=== PATIENT | male | born 1975 | race Caucasian/White ===

== ENCOUNTER 2019-11-23 23:04 | Emergency (ER) | payer BC ==
--- NOTE | 2019-11-23 23:57 | EDM.PDOC ---
ED HPI GENERAL MEDICAL PROBLEM - General Chief Complaint: Upper Extremity Injury/Pain Stated Complaint: LEFT HAND INJURY Time Seen by Provider: 11/23/19 23:52 Source of Information: Reports: Patient History Limitations: Reports: No Limitations - History of Present Illness INITIAL COMMENTS - FREE TEXT/NARRATIVE: This is a 44-year-old male who presents to the emergency room with a chief complaint of left finger pain after mountain biking. Patient states his finger went out of joint and he put it back in but he still has pain therefore he came to the emergency room Onset: Today Duration: Hour(s): Location: Reports: Upper Extremity, Left Quality: Reports: Burning, Throbbing Severity: Moderate Improves with: Reports: None Worsens with: Reports: None Associated Symptoms: Reports: No Other Symptoms L 5th digit Pain Score (Numeric/FACES): 10 - Related Data Allergies Allergy/AdvReac Type Severity Reaction Status Date / Time No Known Allergies Allergy Verified 11/23/19 23:36 Home Meds: Home Meds . [No Known Home Meds] 11/23/19 [History] Review of Systems - Review of Systems Review Of Systems: See Below Constitutional: Reports: No Symptoms Eyes: Reports: No Symptoms Ears: Reports: No Symptoms Nose: Reports: No Symptoms Mouth/Throat: Reports: No Symptoms Respiratory: Reports: No Symptoms Cardiovascular: Reports: No Symptoms GI/Abdominal: Reports: No Symptoms Genitourinary: Reports: No Symptoms Musculoskeletal: Reports: No Symptoms, Other (Finger pain/fifth digit) Skin: Reports: No Symptoms Neurological: Reports: No Symptoms Psychiatric: Reports: No Symptoms ED EXAM, GENERAL - Physical Exam Exam: See Below Exam Limited By: No Limitations General Appearance: Alert, WD/WN, No Apparent Distress Eye Exam: Bilateral Eye: Normal Fundi, Normal Inspection Ears: Normal External Exam, Normal Canal, Hearing Grossly Normal, Normal TMs Ear Exam: Bilateral Ear: Auricle Normal, Canal Normal, TM normal Nose: Normal Inspection, Normal Mucosa, No Blood Throat/Mouth: Normal Inspection, Normal Lips, Normal Teeth, Normal Gums, Normal Oropharynx, Normal Voice, No Airway Compromise Head: Atraumatic, Normocephalic Neck: Normal Inspection, Supple, Non-Tender, Full Range of Motion Cardiovascular: Normal Peripheral Pulses, Regular Rate, Rhythm, No Edema, No Gallop, No JVD, No Murmur, No Rub Back Exam: Normal Inspection, Full Range of Motion, NT Extremities: Limited Range of Motion, Other (Left digit he minimi pain and palpation. ) Neurological: Alert, Oriented, CN II-XII Intact, Normal Cognition, Normal Gait, Normal Reflexes, No Motor/Sensory Deficits Skin Exam: Warm, Dry, Intact, Normal Color, No Rash Lymphatic: No Adenopathy ED TRAUMA EXTREMITY PROCEDURES - Splinting Left 5th Digit Pre-Procedure NV Status: Normal Post-Procedure NV Status: Normal Splint Material: Aluminum-Foam Splint Design: Volar Applied & Form Fitted By: Nurse Provider Post-Splint Application NV Check: NV Status Normal Complications: No Course - Vital Signs Last Recorded V/S: Last Vital Signs Temp 97.6 F 11/23/19 23:24 Pulse 76 11/23/19 23:24 Resp 18 11/23/19 23:24 BP 191/119 H 11/23/19 23:24 Pulse Ox 98 11/23/19 23:24 - Orders/Labs/Meds Orders: Active Orders 24 hr Category Date Time Status Fingers Fifth Digit Lt F4 [CR] Stat Exams 11/23/19 23:33 Ordered Fingers Fifth Digit Rt F9 [CR] Stat Exams 11/23/19 23:47 Ordered Departure - Departure Time of Disposition: 23:56 Disposition: Home, Self-Care 01 Condition: Good Clinical Impression: Dislocation of distal interphalangeal joint of left index finger - Discharge Information Referrals: PCP,None [Primary Care Provider] - Sepsis Event Note - Evaluation Sepsis Screening Result: No Definite Risk - Focused Exam Vital Signs: Vital Signs Temp Pulse Resp BP Pulse Ox 11/23/19 23:24 97.6 F 76 18 191/119 H 98 Date Exam was Performed: 11/23/19 Time Exam was Performed: 23:52 - My Orders Last 24 Hours: My Active Orders 11/23/19 23:33 Fingers Fifth Digit Lt F4 [CR] Stat 11/23/19 23:47 Fingers Fifth Digit Rt F9 [CR] Stat - Assessment/Plan Last 24 Hours: My Active Orders 11/23/19 23:33 Fingers Fifth Digit Lt F4 [CR] Stat 11/23/19 23:47 Fingers Fifth Digit Rt F9 [CR] Stat
--- NOTE | 2019-11-24 00:28 | CR ---
Indication: Injury. Pain Technique: Three views of the left 5th digit Comparison: None available Findings/Impression: Bones: Dorsal dislocation of the 5th distal phalanx. A small calcific density adjacent to the palmar aspect of the base of the 5th distal phalanx which could represent a small fracture fragment. Joint spaces: Unremarkable. Soft tissues: Unremarkable. Dictated by Sean Langford MD @ 11/24/2019 12:27:22 AM Dictated by: Sean Langford MD @ 11/24/2019 00:27:29 (Electronically Signed)
--- NOTE | 2019-11-24 00:32 | CR ---
Indication: Post reduction Technique: Two views of the left 5th digit Comparison: 11/23/2019 at 11:43 p.m. Findings/Impression: Interval reduction of the previously seen 5th DIP dislocation. A small calcification again seen adjacent to the base of the 5th distal phalanx which may represent a small fracture fragment versus an ossicle. Dictated by Sean Langford MD @ 11/24/2019 12:32:23 AM Dictated by: Sean Langford MD @ 11/24/2019 00:32:26 (Electronically Signed)
== END 2019-11-24 00:10 | disposition home or self-care (01) ==
LOC: MW.ED 23:04
DX: S63.291A Dislocation of distal interphalangeal joint of left index finger, initial encounter (principal); X50.9XXA Other and unspecified overexertion or strenuous movements or postures, initial encounter; Y93.89 Activity, other specified
CPT/HCPCS: 73140-26-F4; 73140-F4; 99282; 99283-25

== ENCOUNTER 2020-09-04 18:44 | Emergency (ER) | payer BC ==
[2020-09-04] MEDS ORDERED: Acetaminophen 500 MG Tab PO ONE (19:31)
--- NOTE | 2020-09-04 20:17 | CR ---
INDICATION: Short of breath. TECHNIQUE: One view. FINDINGS/IMPRESSION : Subtle density at the left base could be nipple shadow under the posterior 9th rib. No other pulmonary parenchymal finding of significance. Pulmonary vascularity and cardiomediastinal silhouette appear normal with no pneumothorax or effusion evident. Dictated by Selvin Ivy MD @ Sep 04 2020 8:15PM Signed by Dr. Selvin Ivy @ Sep 04 2020 8:15PM
--- NOTE | 2020-09-04 21:08 | EDM.PDOC ---
ED HPI GENERAL MEDICAL PROBLEM - General Chief Complaint: Respiratory Problem Stated Complaint: covid complication Time Seen by Provider: 09/04/20 19:04 - History of Present Illness INITIAL COMMENTS - FREE TEXT/NARRATIVE: CHIEF COMPLAINT(S): Shortness of breath HISTORY OF PRESENT ILLNESS: This is a 45-year-old man without any past medical history who comes to the emergency department with a chief complaint of shortness of breath. The patient states that 1 day ago he was diagnosed with COVID-19 in [place]. He states that he was seen in an urgent care and was prescribed hydroxychloroquine, dexamethasone, azithromycin, and albuterol. He states that prior to his visit at urgent care he had symptoms for approximately 3 to 4 days. He states that his symptoms include fever, chills, fatigue and intermittent shortness of breath with cough. He states that this evening around 2 PM he started to have increased cough and shortness of breath. He states that he did try the albuterol but it seemed to agitate him. Given the continued coughing for the last couple of hours he decided to come to the emergency department. He states in addition to the hydroxychloroquine, azithromycin, dexamethasone and albuterol he has been taking herbal supplements including zinc and had tried other remedies for his cough. He denies any chest pain or syncope. He denies any lower extremity swelling or prior history of DVT or PE. He states that he did just have a 10-1/2-hour drive from [place]. He denies any risk factors such as asthma, COPD, CHF, CAD, hypertension, morbid obesity. He states that he did have a benign arrhythmia when he was in the . He states that he contacted one of his [place] friends who worked in [place] and [place] and he recommended that he come to the emergency department to receive Regeneron and BAM REVIEW OF SYSTEMS: Constitutional: Positive for fever Eyes: Denies eye pain Ears, Nose, Mouth, & Throat: Denies earache, sore throat, runny nose Cardiovascular: Denies chest pain Respiratory: Positive for shortness of breath and nonproductive cough. Gastrointestinal: Denies Nausea, vomiting, diarrhea, hematochezia. Genitourinary: Denies hematuria Skin:Denies a rash MSK: Denies joint pain Neurological: Denies blurred vision Psychiatric: Denies depression PAST MEDICAL HISTORY: As per history of present illness and as reviewed below otherwise noncontributory. SURGICAL HISTORY: As per history of present illness and as reviewed below otherwise noncontributory. SOCIAL HISTORY: As per history of present illness and as reviewed below otherwise noncontributory. FAMILY HISTORY: As per history of present illness and as reviewed below otherwise noncontributory. EXAMINATION OF ORGAN SYSTEMS/BODY AREAS: Constitutional: Blood pressure is 159/102, heart rate 102, respiratory rate 24 with an oxygen saturation of 97% on room air. Temperature 38.2 General: Young man who does not appear to be in acute distress Psychiatric: Appropriate mood and affect. Eyes: No scleral icterus or conjunctival erythema ENMT: Moist mucous membranes. No pharyngeal erythema Cardiovascular: Regular, rate, and rhythm. No gallops, murmurs, or rubs. Bilateral upper extremity pulses symmetric and intact. No peripheral edema. No JVD. Respiratory: Lungs clear to auscultation bilaterally. No wheezes, rales, or rhonchi. Gastrointestinal: Soft, non-tender, non-distended. Normoactive bowel sounds Genitourinary: No suprapubic tenderness Musculoskeletal: Normal range of motion. Skin: No lesions or abrasions. Neurological: Alert, GCS 15 MEDICAL DECISION MAKING AND COURSE IN THE ED WITH INTERPRETATION/REVIEW OF DIAGNOSTIC STUDIES: This is a 45-year-old man without any significant past medical history recently diagnosed with COVID-19 and prescribed hydroxychloroquine of azithromycin, albuterol, dexamethasone who comes to the emergency department with shortness of breath and cough. The patient's vitals show an adequate oxygenation however the patient is tachycardic and febrile. We will provide the patient with Tylenol for the fever. At this time given the patient's recent diagnosis of Covid and the prolonged travel by car we will obtain a D-dimer to risk stratify for possible pulmonary embolism. Will obtain a screening EKG and a chest x-ray. I do not believe any other labs or imaging are indicated. Laboratory: D-dimer is 0.42. The radiological images were viewed by myself along with reading the report from the radiologist. Chest x-ray does not reveal any acute cardiopulmonary process. The patient's vitals continue to remain normal with adequate oxygenation. I did have a discussion with the patient regarding management at this time. I did recommend to the patient that at this time dexamethasone, hydroxychloroquine, and azithromycin are not indicated and may actually be harmful. I did encourage the patient to not take these medications. I discussed that given that he does not have any comorbid conditions and that his vitals remain normal he is not a candidate for any monoclonal antibody treatment or other treatment at this time. I did recommend the use of Tylenol and Motrin for fever and pain relief. I did discuss with the patient that he could use albuterol as needed given that there is possibility of bronchitis. I discussed that he should purchase an [id number] pulse oximetry and that he should return if his pulse oximetry remains low persistently. He was also given other strict return precautions. He was amenable to discharge at this time and had no further questions. DISPOSITION: The patient was discharged home in stable condition. The patient will follow up with primary care physician within 2 to 3 days CONDITION: Fair PROCEDURES: None FINAL IMPRESSION(S)/DIAGNOSES: 1. Acute dyspnea secondary to COVID-19 Vince Crocker M.D. lower back Pain Score (Numeric/FACES): 8 - Related Data Allergies Allergy/AdvReac Type Severity Reaction Status Date / Time No Known Allergies Allergy Verified 09/04/20 19:15 Home Meds: Home Meds Azithromycin 500 mg PO 09/04/20 [History] Hydroxychloroquine [Plaquenil] 09/04/20 [History] dexAMETHasone [Decadron] 09/04/20 [History] Past Medical History - Past Health History Medical/Surgical History: Denies Medical/Surgical History Cardiovascular History: Reports: Hypertension, Other (See Below) Other Cardiovascular History: states he is not on medication for HTN "i do exercise" Respiratory History: Reports: None Gastrointestinal History: Reports: None Genitourinary History: Reports: None Musculoskeletal History: Reports: None Neurological History: Reports: None Psychiatric History: Reports: None Endocrine/Metabolic History: Reports: None Insulin Pump Model and Office Support Associate: None Hematologic History: Reports: None Immunologic History: Reports: None Oncologic (Cancer) History: Reports: None Dermatologic History: Reports: None - Infectious Disease History Infectious Disease History: Reports: Chicken Pox - Past Surgical History Head Surgeries/Procedures: Reports: None Cardiovascular Surgical History: Reports: None Social & Family History - Family History Family Medical History: No Pertinent Family History - Caffeine Use Caffeine Use: Reports: None - Recreational Drug Use Recreational Drug Use: No ED ROS GENERAL - Review of Systems Review Of Systems: See Below ED EXAM, GENERAL - Physical Exam Exam: See Below Course - Vital Signs Last Recorded V/S: Last Vital Signs Temp 37.5 C 09/04/20 21:20 Pulse 82 09/04/20 21:20 Resp 82 H 09/04/20 21:20 BP 128/69 09/04/20 21:20 Pulse Ox 95 09/04/20 21:20 - Orders/Labs/Meds Labs: Laboratory Tests 09/04/20 Range/Units 19:05 D-Dimer, Quantitative 0.42 (0.0-0.50) mg/L FEU Meds: Medications Discontinued Medications Generic Name Dose Route Start Last Admin Trade Name Freq PRN Reason Stop Dose Admin Acetaminophen 1,000 mg 09/04/20 19:31 09/04/20 19:43 Tylenol Extra Strength PO 09/04/20 19:32 1,000 mg ONETIME ONE Administration Departure - Departure Time of Disposition: 21:07 Disposition: Home, Self-Care 01 Condition: Fair Clinical Impression: COVID-19 - Discharge Information *PRESCRIPTION DRUG MONITORING PROGRAM REVIEWED*: No *COPY OF PRESCRIPTION DRUG MONITORING REPORT IN PATIENT SEFERINO: No Instructions: COVID-19 Frequently Asked Questions, What You Should Know About COVID-19 to Protect Yourself and Others - CDC, 10 Things You Can Do to Manage Your COVID-19 Symptoms at Home - CDC, Acute Bronchitis, Adult, [id number], COVID-19: Quarantine vs. Isolation - CDC Referrals: PCP,None [Primary Care Provider] - Forms: ED Department Discharge Additional Instructions: You evaluate today on an emergent basis. At this time your oxygen remained stable, your chest x-ray did not reveal any bacterial pneumonia and the lab was sent to evaluate for clots in your lung was negative. I recommend continued use of Tylenol Motrin for fever and pain relief. I recommend continued fluid intake. Do not take any excessive fluids. You may use albuterol as needed for persistent cough and shortness of breath. This can be used every 4-6 hours. Current NIH, CDC, and WHO recommendations do not recommend dexamethasone, azithromycin or hydroxychloroquine which can be dangerous. Therefore I do recom mend that you stop taking these medications. At this time given that you do not have any comorbid conditions we do not recommend any monoclonal antibody treatment. Please purchase an [id number] pulse oximetry and if your pulse ox is less than 92% persistently please return to the emergency department. If you have any new or worsening symptoms you are also welcome to return. Please follow-up with your primary care physician. We do recommend a 10-day quarantine. Please follow the CDC guidelines Please use: Tylenol 500-1000mg every 6 hours (DO NOT TAKE MORE THAN 4000mg in 1 day) Ibuprofen 400mg every 6 hours (Take with food as it can cause ulcers, GI upset) Example schedule: 8:00 AM (Tylenol 500-1000mg) 11:00 AM (Ibuprofen 400mg) 2:00 PM (Tylenol 500-1000mg) 5:00 PM (Ibuprofen 400mg) [facility] [address] [place] [id number] [place] [address] The patient is informed of any results of their evaluation and diagnostic workup and all questions are answered. They are given discharge instructions and return precautions. The patient is stable for discharge. The patient states they understand and agree with the plan and that they will return if their symptoms get worse or if they have any new concerns. The following information is given to patients seen in the emergency department who are being discharged to home. This information is to outline your options for follow-up care. We provide all patients seen in our emergency department with a follow-up referral. The need for follow-up, as well as the timing and circumstances, are variable depending upon the specifics of your emergency department visit. If you don't have a primary care physician on staff, we will provide you with a referral. We always advise you to contact your personal physician following an emergency department visit to inform them of the circumstance of the visit and for follow-up with them and/or the need for any referrals to a consulting specialist. The emergency department will also refer you to a specialist when appropriate. This referral assures that you have the opportunity for follow-up care with a specialist. All of these measure are taken in an effort to provide you with optimal care, which includes your follow-up. Under all circumstances we always encourage you to contact your private physician who remains a resource for coordinating your care. When calling for follow-up care, please make the office aware that this follow-up is from your recent emergency room visit. If for any reason you are refused follow-up, please contact the [facility] Emergency Department at and asked to speak to the emergency department charge nurse. Sepsis Event Note (ED) - Evaluation Sepsis Screening Result: No Definite Risk - Focused Exam Vital Signs: Vital Signs Temp Pulse Resp BP Pulse Ox 09/04/20 21:20 37.5 C 82 82 H 128/69 95 09/04/20 20:45 37.2 C 87 18 128/77 95 09/04/20 20:00 92 18 135/74 94 L 09/04/20 19:04 38.2 C H 102 H 24 H 159/102 H 97
--- NOTE | 2020-09-05 02:59 | PCM.EKG ---
#1 Interpretation EKG Date: 09/04/20 Time: 19:36 Rhythm: NSR Rate (Beats/Min): 95 Mcgraw: RAD-Right Mcgraw Deviation P-Wave: Present QRS: Wide ST-T: Normal QT: Normal Comparison: NA - No Prior EKG EKG Interpretation Comments: Sinus Rhythm with Q wave V2 and lead I.
== END 2020-09-04 21:20 | disposition home or self-care (01) ==
LOC: MW.ED 18:44
DX: U07.1 COVID-19 (principal); I10 Essential (primary) hypertension
CPT/HCPCS: 36415; 71045; 85379; 93005; 99285; A9270; 93010; 99284

== ENCOUNTER 2020-09-06 16:48 | Emergency (ER) | payer BC ==
[2020-09-06] MEDS ORDERED: Sodium Chloride 0.9% 10 ML Syringe FLUSH PRN (17:01)
[2020-09-06] MEDS ORDERED: Sodium Chloride 0.9% 2.5 ML Syringe FLUSH PRN (17:01)
[2020-09-06] MEDS ORDERED: Sodium Chloride 0.9% 1,000 ML IV ONE ×2 (17:01→17:02)
[2020-09-06] MEDS ORDERED: Acetaminophen 500 MG Tab PO ONE (17:02)
[2020-09-06] MEDS ORDERED: Ketorolac 30 MG/ML SDV IVPUSH ONE (17:02)
--- NOTE | 2020-09-06 17:03 | EDM.PDOC ---
ED HPI GENERAL MEDICAL PROBLEM - General Chief Complaint: Respiratory Problem Stated Complaint: COVID COMPLICATION Time Seen by Provider: 09/06/20 16:50 Source of Information: Reports: Patient History Limitations: Reports: No Limitations - History of Present Illness INITIAL COMMENTS - FREE TEXT/NARRATIVE: HISTORY AND PHYSICAL: History of present illness: Patient is a 45-year-old male who presents to the emergency room with complaints of shortness of breath and cough over the past 1 week. He states a week ago he was diagnosed with COVID-19 while he was in [place]. He states the provider had started him on Plaquenil, azithromycin and Decadron. He discontinued taking these medications few days later after being re-evaluated. Over the past 3 to 4 days he feels his shortness of breath and cough has worsened. He has a home oxygen monitor which he has seen it at 85% on room air. States he continues to have high fevers of 101-103, Tylenol and Ibuprofen help temporarily with fever management. Mild dull frontal headache. Intermittent nausea, vomiting and diarrhea. Patient denies any change in vision, syncope or near syncope. Denies any chest pain, back pain, abdominal pain, constipation or dysuria. Has not noted any blood in urine or stool. Patient has been eating and drinking appropriately. Review of systems: As per history of present illness and below otherwise all systems reviewed and negative. Past medical history: As per history of present illness and as reviewed below otherwise noncontributory. Surgical history: As per history of present illness and as reviewed below otherwise noncontributory. Social history: See social history for further information Family history: As per history of present illness and as reviewed below otherwise noncon tributory. Physical exam: General: Well developed and well nourished. Alert and orientated x 3. Nontoxic in appearance and in no acute distress. Vital signs are stable and have been reviewed by me. Nursing notes were reviewed. HEENT: Atraumatic, normocephalic, pupils equal and reactive bilaterally, negative for conjunctival pallor or scleral icterus, mucous membranes dry/tacky, TMs normal bilaterally, throat clear, neck supple, nontender, trachea midline. No drooling or trismus noted. No meningeal signs. No hot potato voice noted. Lungs: Clear to auscultation bilaterally. No wheezes, rales, or rhonchi. Chest nontender. Normal work of breathing, no accessory muscles used. Heart: S1S2, regular rate and rhythm without overt murmur, gallops, or rubs. No JVD. No peripheral edema Abdomen: Soft, nondistended, nontender. Normoactive bowel sounds. Negative for masses or costovertebral tenderness. Skin: Intact, warm, dry. No lesions or rashes noted. Hematologic: No petechiae or purpra. Mucosa appropriate color and normal nail bed color and refill. Extremities: Atraumatic, moves all extremities per self without difficulty or deficits, negative for cords or calf pain. Neurovascular unremarkable. Neuro: Awake, alert, oriented. Cranial nerves II through XII unremarkable. Cerebellum unremarkable. Motor and sensory unremarkable throughout. Exam nonfocal. Psychiatric: Mood and affect are appropriate. Normal thought process. Answering questions appropriately. Notes: *This patient was seen and evaluated during the 2019 SARS-CoV-2 novel coronavirus pandemic period. Community viral transmission is ongoing at time of this encounter and the emergency department is operating under pandemic response procedures. X-ray shows new bilateral patchy airspace opacities. Findings which could be seen with multifocal pneumonia or a viral infectious process such as COVID-19. Patient does have an elevated D.Dimer, which is not unusual for COVID, but he appears anxious, SOB and is tachycardic. CT angio chest shows no pulmonary emboli. Bilateral patchy ground-glass opacities which can be seen within COVID pneumonia. I have talked with the patient about today's findings, in addition to providing specific details for plan of care. Reassessment at the time of disposition demonstrates that the patient is in no acute distress. The patient is stable for discharge, counseling was provided and we discussed in great detail signs and symptoms that would prompt them to return to the Emergency Department. Medication, follow up and supportive care measures were reviewed and discussed. Voices understanding and is agreeable to plan of care. Denies any further questions or concerns at this time. Diagnostics: CBC, CMP, EKG, CXR, D.Dimer, Blood Culture, Lactate Therapeutics: IV fluids Prescription: Zofran Impression: Dehydration COVID-19 Plan: 1. You do appear dehydrated, you received IV fluids here. You were offered admission and declined. Please keep pushing fluids at home, small frequent sips of fluids. Zofran as needed for nausea management. If your symptoms should worsen or new symptoms develop please return to the emergency room. Continue to monitor for trouble breathing, new confusion or inability to arouse, bluish lips or face or any of the other symptoms we discussed -if this occurs please return to the emergency room. 2. You can take NyQuil during the evening to help get a restful night sleep. May alternate Tylenol and ibuprofen as needed for headache pain and fever management. 3. Please follow up with your primary care provider within the next few days for re-evaluation. Definitive disposition and diagnosis as appropriate pending reevaluation and review of above. Chest, head Pain Score (Numeric/FACES): 5 - Related Data Allergies Allergy/AdvReac Type Severity Reaction Status Date / Time No Known Allergies Allergy Verified 09/04/20 19:15 Home Meds: Home Meds Azithromycin 500 mg PO 09/04/20 [History] Hydroxychloroquine [Plaquenil] 09/04/20 [History] dexAMETHasone [Decadron] 09/04/20 [History] Past Medical History - Past Health History Medical/Surgical History: Denies Medical/Surgical History Cardiovascular History: Reports: Hypertension, Other (See Below) Other Cardiovascular History: states he is not on medication for HTN "i do exercise" Respiratory History: Reports: None Gastrointestinal History: Reports: None Genitourinary History: Reports: None Musculoskeletal History: Reports: None Neurological History: Reports: None Psychiatric History: Reports: None Endocrine/Metabolic History: Reports: None Insulin Pump Model and Weaving Loom Operator: None Hematologic History: Reports: None Immunologic History: Reports: None Oncologic (Cancer) History: Reports: None Dermatologic History: Reports: None - Infectious Disease History Infectious Disease History: Reports: Chicken Pox - Past Surgical History Head Surgeries/Procedures: Reports: None Cardiovascular Surgical History: Reports: None Social & Family History - Family History Family Medical History: No Pertinent Family History - Caffeine Use Caffeine Use: Reports: None ED ROS GENERAL - Review of Systems Review Of Systems: Comprehensive ROS is negative, except as noted in HPI. ED EXAM, GENERAL - Physical Exam Exam: See Below (See dictation) Course - Vital Signs Last Recorded V/S: Last Vital Signs Temp 103.6 F H 09/06/20 17:19 Pulse 100 09/06/20 16:59 Resp 26 H 09/06/20 16:59 BP 137/86 09/06/20 16:59 Pulse Ox 94 L 09/06/20 16:59 - Orders/Labs/Meds Orders: Active Orders 24 hr Category Date Time Status EKG Documentation Completion [RC] STAT Care 09/06/20 17:01 Active CULTURE BLOOD [BC] Stat Lab 09/06/20 17:35 Received CULTURE BLOOD [BC] Stat Lab 09/06/20 17:40 Received Sodium Chloride 0.9% [Saline Flush] Med 09/06/20 17:01 Active 10 ml FLUSH ASDIRECTED PRN Sodium Chloride 0.9% [Saline Flush] Med 09/06/20 17:01 Active 2.5 ml FLUSH ASDIRECTED PRN Blood Culture x2 Reflex Set [OM.PC] Stat Oth 09/06/20 17:02 Ordered Saline Lock Insert [OM.PC] Stat Oth 09/06/20 17:01 Ordered Medication Orders Sodium Chloride (Saline Flush) 10 ml FLUSH ASDIRECTED PRN PRN Reason: Keep Vein Open Last Admin: 09/06/20 17:21 Dose: 10 ml Documented by: VEGA Sodium Chloride (Saline Flush) 2.5 ml FLUSH ASDIRECTED PRN PRN Reason: Keep Vein Open Last Admin: 09/06/20 17:20 Dose: 2.5 ml Documented by: VEGA Labs: Laboratory Tests 09/06/20 09/06/20 09/06/20 Range/Units 17:25 17:25 17:25 WBC 3.56 L (4.0-11.0) K/uL RBC 4.60 (4.50-5.90) M/uL Hgb 14.0 (13.0-17.0) g/dL Hct 39.0 (38.0-50.0) % MCV 84.8 (80.0-98.0) fL MCH 30.4 (27.0-32.0) pg MCHC 35.9 (31.0-37.0) g/dL RDW Std Deviation 37.0 (28.0-62.0) fl RDW Coeff of Sonia 12 (11.0-15.0) % Plt Count 108 L (150-400) K/uL MPV 10.00 (7.40-12.00) fL Neut % (Auto) 77.2 (48.0-80.0) % Lymph % (Auto) 16.3 (16.0-40.0) % H[place] % (Auto) 6.5 (0.0-15.0) % Eos % (Auto) 0.0 (0.0-7.0) % Baso % (Auto) 0.0 (0.0-1.5) % Neut # (Auto) 2.8 (1.4-5.7) K/uL Lymph # (Auto) 0.6 (0.6-2.4) K/uL Hoke # (Auto) 0.2 (0.0-0.8) K/uL Eos # (Auto) 0.0 (0.0-0.7) K/uL Baso # (Auto) 0.0 (0.0-0.1) K/uL Nucleated RBC % 0.0 /100WBC Nucleated RBCs # 0 K/uL D-Dimer, Quantitative 0.74 H (0.0-0.50) mg/L FEU Lactate (0.20-2.00) mmol/L Sodium 128 L (136-148) mmol/L Potassium 3.1 L (3.5-5.1) mmol/L Chloride 93 L (98-107) mmol/L Carbon Dioxide 23.2 (21.0-32.0) mmol/L BUN 12 (7.0-18.0) mg/dL Creatinine 1.0 (0.8-1.3) mg/dL Est Cr Clr Drug Dosing 107.64 mL/min Estimated GFR (MDRD) > 60.0 ml/min Glucose 125 H (74-106) mg/dL Calcium 8.1 L (8.5-10.1) mg/dL Total Bilirubin 0.6 (0.2-1.0) mg/dL AST 71 H (15-37) IU/L ALT 82 H (14-63) IU/L Alkaline Phosphatase 35 L (46-116) U/L Troponin I (0.000-0.056) ng/mL Total Protein 7.6 (6.4-8.2) g/dL Albumin 3.4 (3.4-5.0) g/dL Globulin 4.2 H (2.6-4.0) g/dL Albumin/Globulin Ratio 0.8 L (0.9-1.6) Urine Color Urine Appearance Urine pH (5.0-8.0) Ur Specific [place] (1.001-1.035) Urine Protein (NEGATIVE) mg/dL Urine Glucose (UA) (NEGATIVE) mg/dL Urine Ketones (NEGATIVE) mg/dL Urine Occult Blood (NEGATIVE) Urine Nitrite (NEGATIVE) Urine Bilirubin (NEGATIVE) Urine Urobilinogen (<2.0) EU/dL Ur Leukocyte Esterase (NEGATIVE) Urine RBC (0-2/HPF) Urine WBC (0-5/HPF) Ur Epithelial Cells (NONE-FEW) Urine Bacteria (NEGATIVE) 09/06/20 09/06/20 09/06/20 Range/Units 17:25 17:25 18:27 WBC (4.0-11.0) K/uL RBC (4.50-5.90) M/uL Hgb (13.0-17.0) g/dL Hct (38.0-50.0) % MCV (80.0-98.0) fL MCH (27.0-32.0) pg MCHC (31.0-37.0) g/dL RDW Std Deviation (28.0-62.0) fl RDW Coeff of Sonia (11.0-15.0) % Plt Count (150-400) K/uL MPV (7.40-12.00) fL Neut % (Auto) (48.0-80.0) % Lymph % (Auto) (16.0-40.0) % Hoke % (Auto) (0.0-15.0) % Eos % (Auto) (0.0-7.0) % Baso % (Auto) (0.0-1.5) % Neut # (Auto) (1.4-5.7) K/uL Lymph # (Auto) (0.6-2.4) K/uL Hoke # (Auto) (0.0-0.8) K/uL Eos # (Auto) (0.0-0.7) K/uL Baso # (Auto) (0.0-0.1) K/uL Nucleated RBC % /100WBC Nucleated RBCs # K/uL D-Dimer, Quantitative (0.0-0.50) mg/L FEU Lactate 1.0 (0.20-2.00) mmol/L Sodium (136-148) mmol/L Potassium (3.5-5.1) mmol/L Chloride (98-107) mmol/L Carbon Dioxide (21.0-32.0) mmol/L BUN (7.0-18.0) mg/dL Creatinine (0.8-1.3) mg/dL Est Cr Clr Drug Dosing mL/min Estimated GFR (MDRD) ml/min Glucose (74-106) mg/dL Calcium (8.5-10.1) mg/dL Total Bilirubin (0.2-1.0) mg/dL AST (15-37) IU/L ALT (14-63) IU/L Alkaline Phosphatase (46-116) U/L Troponin I < 0.050 (0.000-0.056) ng/mL Total Protein (6.4-8.2) g/dL Albumin (3.4-5.0) g/dL Globulin (2.6-4.0) g/dL Albumin/Globulin Ratio (0.9-1.6) Urine Color YELLOW Urine Appearance HAZY Urine pH 6.0 (5.0-8.0) Ur Specific [place] 1.025 (1.001-1.035) Urine Protein 100 H (NEGATIVE) mg/dL Urine Glucose (UA) NEGATIVE (NEGATIVE) mg/dL Urine Ketones 15 H (NEGATIVE) mg/dL Urine Occult Blood NEGATIVE (NEGATIVE) Urine Nitrite NEGATIVE (NEGATIVE) Urine Bilirubin NEGATIVE (NEGATIVE) Urine Urobilinogen 0.2 (<2.0) EU/dL Ur Leukocyte Esterase NEGATIVE (NEGATIVE) Urine RBC 0-1 (0-2/HPF) Urine WBC 0-1 (0-5/HPF) Ur Epithelial Cells RARE (NONE-FEW) Urine Bacteria FEW (NEGATIVE) Meds: Medications Generic Name Dose Route Start Last Admin Trade Name Freq PRN Reason Stop Dose Admin Sodium Chloride 10 ml 09/06/20 17:09/06/20 17:21 Saline Flush FLUSH 10 ml ASDIRECTED PRN Administration Keep Vein Open Sodium Chloride 2.5 ml 09/06/20 17:09/06/20 17:20 Saline Flush FLUSH 2.5 ml ASDIRECTED PRN Administration Keep Vein Open Discontinued Medications Generic Name Dose Route Start Last Admin Trade Name Freq PRN Reason Stop Dose Admin Acetaminophen 1,000 mg 09/06/20 17:02 09/06/20 17:19 Tylenol Extra Strength PO 09/06/20 17:03 1,000 mg ONETIME ONE Administration Sodium Chloride 1,000 mls @ 999 mls/hr 09/06/20 17:01 09/06/20 17:20 Normal Saline IV 09/06/20 18:01 999 mls/hr STAT ONE Administration Sodium Chloride 1,000 mls @ 999 mls/hr 09/06/20 17:02 09/06/20 17:20 Normal Saline IV 09/06/20 18:02 999 mls/hr STAT ONE Administration Iopamidol 100 ml 09/06/20 18:48 09/06/20 18:52 Isovue Multipack-370 (76%) IVPUSH 09/06/20 18:49 100 ml ONETIME STA Administration Ketorolac Tromethamine 30 mg 09/06/20 17:02 09/06/20 17:19 Toradol IVPUSH 09/06/20 17:03 30 mg ONETIME ONE Administration Potassium Chloride 40 meq 09/06/20 19:42 Klor-Con M20 PO 09/06/20 19:43 ONETIME ONE Departure - Departure Time of Disposition: 19:46 Disposition: Home, Self-Care 01 Clinical Impression: COVID-19, Dehydration, Hypokalemia - Discharge Information Instructions: Dehydration, Adult, [id number] Referrals: PCP,Declined [Primary Care Provider] - Forms: ED Department Discharge Additional Instructions: The following information is given to patients seen in the emergency department who are being discharged to home. This information is to outline your options for follow-up care. We provide all patients seen in our emergency department with a follow-up referral. The need for follow-up, as well as the timing and circumstances, are variable depending upon the specifics of your emergency department visit. If you don't have a primary care physician on staff, we will provide you with a referral. We always advise you to contact your personal physician following an emergency department visit to inform them of the circumstance of the visit and for follow-up with them and/or the need for any referrals to a consulting specialist. The emergency department will also refer you to a specialist when appropriate. This referral assures that you have the opportunity for follow-up care with a specialist. All of these measure are taken in an effort to provide you with optimal care, which includes your follow-up. Under all circumstances we always encourage you to contact your private physician who remains a resource for coordinating your care. When calling for follow-up care, please make the office aware that this follow-up is from your recent emergency room visit. If for any reason you are refused follow-up, please contact the [facility] Emergency Department at and asked to speak to the emergency department charge nurse. [facility] [address] [place] [id number] [facility] [address] [place] [id number] Thank you for choosing the [facility] emergency department in [place] for your medical needs today. It was a pleasure caring for you. Today you were seen in the emergency department for COVID complications. 1. You do appear dehydrated, you received IV fluids here. You were offered admission and declined, if you should change your mind you can always return. Please keep pushing fluids at home, small frequent sips of fluids. Zofran as needed for nausea management. If your symptoms should worsen or new symptoms develop please return to the emergency room. Continue to monitor for trouble breathing, new confusion or inability to arouse, bluish lips or face or any of the other symptoms we discussed -if this occurs please return to the emergency room. 2. You can take NyQuil during the evening to help get a restful night sleep. May alternate Tylenol and ibuprofen as needed for headache pain and fever management. 3. Please follow up with your primary care provider within the next few days for re-evaluation. Sepsis Event Note (ED) - Focused Exam Vital Signs: Vital Signs Temp Temp Pulse Resp BP Pulse Ox 09/06/20 17:19 103.6 F H 09/06/20 16:59 103.6 F H 100 26 H 137/86 94 L - My Orders Last 24 Hours: My Active Orders 09/06/20 17:01 EKG Documentation Completion [RC] STAT Sodium Chloride 0.9% [Saline Flush] 10 ml FLUSH ASDIRECTED PRN Sodium Chloride 0.9% [Saline Flush] 2.5 ml FLUSH ASDIRECTED PRN Saline Lock Insert [OM.PC] Stat 09/06/20 17:02 Blood Culture x2 Reflex Set [OM.PC] Stat 09/06/20 17:35 CULTURE BLOOD [BC] Stat 09/06/20 17:40 CULTURE BLOOD [BC] Stat - Assessment/Plan Last 24 Hours: My Active Orders 09/06/20 17:01 EKG Documentation Completion [RC] STAT Sodium Chloride 0.9% [Saline Flush] 10 ml FLUSH ASDIRECTED PRN Sodium Chloride 0.9% [Saline Flush] 2.5 ml FLUSH ASDIRECTED PRN Saline Lock Insert [OM.PC] Stat 09/06/20 17:02 Blood Culture x2 Reflex Set [OM.PC] Stat 09/06/20 17:35 CULTURE BLOOD [BC] Stat 09/06/20 17:40 CULTURE BLOOD [BC] Stat
--- NOTE | 2020-09-06 17:08 | PCM.EKG ---
#1 Interpretation EKG Date: 09/06/20 Time: 17:07 EKG Interpretation Comments: Sinus rhythm rate of 95 right axis deviation nonspecific T wave abnormalities inferiorly but no ST elevations or depression no findings of acute ischemia QTC 436
--- NOTE | 2020-09-06 17:54 | CR ---
INDICATION: Shortness of breath TECHNIQUE: Chest 1 view. COMPARISON: Chest x-ray 09/04/2020 FINDINGS: There are new patchy bilateral airspace opacities, worst on the right. Negative for pleural effusion or pneumothorax. The heart appears mildly enlarged, however this may be a central weighted due to AP technique. IMPRESSION: New bilateral patchy airspace opacities. Findings which could be seen with multifocal pneumonia or a viral infectious process such as COVID-19. Dictated by Batsheva Orlando MD @ Sep 06 2020 5:50PM Signed by Dr. Batsheva Orlando @ Sep 06 2020 5:51PM
[2020-09-06 17:59] LABS: BLOOD UREA NITROGEN,BUN 12 mg/dL (7.0-18.0); CARBON DIOXIDE,CO2 23.2 mmol/L (21.0-32.0); CHLORIDE,CL 93 mmol/L (98-107); GLUCOSE RANDOM 125 mg/dL (74-106); POTASSIUM,K 3.1 mmol/L (3.5-5.1); SODIUM,NA 128 mmol/L (136-148)
[2020-09-06] MEDS ORDERED: Iopamidol 755 MG/ML 500 ML Multipack Bottle IVPUSH STA (18:48)
--- NOTE | 2020-09-06 19:37 | CT ---
Indication: Shortness of breath Technique: Contrast as CT PE 100 mL Isovue 370 Comparison: No comparison Findings: Heart size is normal. No pulmonary emboli. The heart size is normal. No pericardial effusion. Prominent mediastinal nodes. Prominent bilateral axillary lymph nodes. Bilateral patchy ground-glass opacities. No central endobronchial lesion. No effusion. No suspicious bony lesions. Impression: 1. No pulmonary emboli. 2. Bilateral patchy ground-glass opacities which can be seen within COVID pneumonia. Please note that all CT scans at this facility use dose modulation, iterative reconstruction, and/or weight-based dosing when appropriate to reduce radiation dose to as low as reasonably achievable. Dictated by Matilde Sprague MD @ Sep 06 2020 7:30PM Signed by Dr. Matilde Sprague @ Sep 06 2020 7:35PM
[2020-09-06] MEDS ORDERED: Potassium Chloride 20 MEQ Tab.ER PO ONE (19:42)
== END 2020-09-06 20:00 | disposition home or self-care (01) ==
LOC: MW.ED 16:48
DX: U07.1 COVID-19 (principal); I10 Essential (primary) hypertension; E87.6 Hypokalemia; E86.0 Dehydration
CPT/HCPCS: 36415; 71045; 71275; 80053; 81001; 83605; 84484; 85025; 85379; 87040; 93005; 96374; 99285; A9270; J1885; J7030; Q9967; 93010; 99284